=== PATIENT | male | born 1975 | race Caucasian/White ===

== ENCOUNTER → 2024-11-07 07:52 | Outpatient (REF) | payer OTHER, SELFPAY | LOC: MRI 07:52 | PROVIDERS: ATTENDING PHYSICIAN Specialist; FAMILY PHYSICIAN Internal Medicine | DX: M25.562 Pain in left knee (principal) | CPT/HCPCS: 73721 ==

== ENCOUNTER 2025-01-26 05:51 | Day surgery (SDC) | payer OTHER, SELFPAY ==
[2025-01-13 14:05] VITALS: BMI 33.0
[2025-01-26] VITALS (7 sets, daily range): BP systolic 122–140; BP diastolic 76–94; BMI 33.0
[2025-01-26] MEDS: NORMOSOL-R/PLASMALYTE-A 1000 IV (06:29)
[2025-01-26] MEDS: TYLENOL 1000 MG PO (06:29)
== END 2025-01-26 09:45 | disposition home or self-care (01) ==
LOC: SDS 05:51
PROVIDERS: ATTENDING PHYSICIAN Specialist; FAMILY PHYSICIAN Internal Medicine
DX: S83.232A Complex tear of medial meniscus, current injury, left knee, initial encounter (principal); X58.XXXA Exposure to other specified factors, initial encounter; M94.262 Chondromalacia, left knee
CPT/HCPCS: 29881; 93005